=== PATIENT | male | born 1975 | race Caucasian/White ===

== ENCOUNTER 2017-02-19 20:38 | Emergency (ER) | payer BC ==
[~2017-02-19] VITALS: Ht 185.4 cm; Wt 110.0 kg
[2017-02-19 20:48] VITALS: Ht 185.4 cm; Wt 110.0 kg
[2017-02-19] MEDS ORDERED: [UNRECOGNIZED DRUG - OTHER] PO (21:00)
--- NOTE | 2017-02-19 21:22 | DIAGNOSTIC IMAGING REPORT ---
RIGHT ANKLE 3 VIEWS HISTORY: R ankle injury Right COMPARISON: None. FINDINGS: There are few small ossific densities adjacent to the lateral, medial, and posterior malleoli. These are consistent with age indeterminate avulsion injury/fractures. Diffuse soft tissue swelling within the ankle. No dislocation. No radiopaque foreign bodies. IMPRESSION: A few small ossific densities adjacent to the lateral, medial, and posterior malleoli consistent with age indeterminate avulsion injury/fractures. Electronically signed by: Tacos Mcclure M.D. 02/19/2017 9:20 PM Dictated Date/Time: 02/19/2017 9:18 PM
[2017-02-19 21:39] VITALS: BP 153/81; PULSE 56; TEMP 37.1; O2SAT 97
--- NOTE | 2017-02-19 22:28 | EMERGENCY ROOM VISIT NOTE ---
History First contact with patient: 20:54 Chief Complaint: ANKLE PAIN Stated Complaint: BROKEN/SPRAINED RIGHT ANKLE History of Present Illness The patient is a 41 year old male who presents to the Emergency Room with complaints of an injury to his right ankle after jumping over a rock and twisting his ankle. The patient denies any pain extending into the foot or leg. Denies any paresthesias or numbness of the right foot or toes. The patient does report that he had an injury to his ankle several years ago. He rates his discomfort a 7 out of 10. Review of Systems 10 system review was performed and was negative except for pertinent positives and negatives as indicated in history of present illness Past Medical/Surgical History Medical Problems: (1) Deviated Nasal Septum (2) Obstructive Sleep Apnea (Adult) (Pediatric) Family History Unremarkable Social History Smoking Status: Never Smoker Alcohol Use: occasionally Marital Status: Housing Status: lives with family Occupation Status: employed Current/Historical Medications Scheduled [Thermogenetic Supp], 1 DOSE PO UD Allergies Coded Allergies: No Known Allergies (Unverified , 02/19/17) Physical Exam Vital Signs Date Time Temp Pulse Resp B/P Pulse Ox O2 Delivery O2 Flow Rate FiO2 02/19/17 21:39 37.1 56 18 153/81 97 02/19/17 20:48 37.1 56 18 153/81 97 Room Air Physical Exam CONSTITUTIONAL: Healthy and well nourished. Alert and oriented X 3 with positive affect. HEENT: Normocephalic, atraumatic. Pupils equal, round and reactive. NECK: Full active range of motion without discomfort. MUSCULOSKELETAL: Examination shows diffuse edema about the right ankle. He is tender over the tip of the lateral malleolus. Minimal discomfort over the deltoid ligament. Negative anterior draw. No focal tenderness to palpation over the dorsal midfoot, metatarsals, phalanges, calcaneus, Achilles tendon or proximal fibula. Pedal pulses are intact. INTEGUMENTARY: No rash or other significant dermatologic conditions noted. NEUROLOGIC: No focal neurologic deficits noted. Right foot and toes are sensory intact. Medical Decision & Procedures ER Provider Diagnostic Interpretation: My interpretation of right ankle x-rays shows age indeterminate avulsion fractures of the lateral and posterior malleoli. Ankle mortise is symmetric. Radiologist report is as follows: RIGHT ANKLE 3 VIEWS HISTORY: R ankle injury Right COMPARISON: None. FINDINGS: There are few small ossific densities adjacent to the lateral, medial, and posterior malleoli. These are consistent with age indeterminate avulsion injury/fractures. Diffuse soft tissue swelling within the ankle. No dislocation. No radiopaque foreign bodies. IMPRESSION: A few small ossific densities adjacent to the lateral, medial, and posterior malleoli consistent with age indeterminate avulsion injury/fractures. ED Course Patient history and physical exam were performed. Nurse's notes were reviewed. The patient refused any analgesics while in the emergency department. X-rays of the right ankle shows age indeterminate avulsion fractures of the lateral and posterior malleoli. A posterior Ortho-Glass splint was applied. Neurovascular check after splint placement was normal. The patient was instructed to follow-up with orthopedics for further reevaluation and management. The patient stated that he would likely call [facility] for follow-up. He was encouraged to ice and elevate ankle for swelling. Ibuprofen and Tylenol in alternating fashion if needed for additional pain relief. Crutches were dispensed, and the patient was instructed to remain nonweightbearing. The patient was happy with plan of care , voiced understanding of all discharge instructions, and denied any significant pain at the time of discharge. Medical Decision Impression Primary Impression: Fractured lateral malleolus Additional Impression: Fracture, posterior malleolus Departure Information Dispostion Home / Self-Care Referrals Yadiel Chappell M.D. Forms HOME CARE DOCUMENTATION FORM, IMPORTANT VISIT INFORMATION Patient Instructions My [facility] Additional Instructions Ice and elevate ankle for swelling and pain. No weight on splint - use crutches. Ibuprofen 800 mg and/or Tylenol 1000 mg every 8 hours. You may also alternate these medications for more effective pain relief: Ibuprofen --4 HRS--> Tylenol --4 HRS--> ibuprofen --4 HRS--> Tylenol .... Follow-up with [facility] for further evaluation and treatment - call tomorrow 8:30 AM for appointment. Problem Qualifiers Primary Impression: Fractured lateral malleolus Encounter type: initial encounter Fracture type: closed Fracture alignment : displaced Laterality: right Qualified Codes: S82.61XA - Displaced fracture of lateral malleolus of right fibula, initial encounter for closed fracture Additional Impression: Fracture, posterior malleolus Encounter type: initial encounter Fracture type: closed Laterality: right Qualified Codes: S82.891A - Other fracture of right lower leg, initial encounter for closed fracture
== END 2017-02-19 21:40 | disposition home or self-care (01) ==
LOC: C.EDB 20:42 → C.EDD 21:40
DX: S82.61XA Displaced fracture of lateral malleolus of right fibula, initial encounter for closed fracture (principal); S82.891A Other fracture of right lower leg, initial encounter for closed fracture; X50.9XXA Other and unspecified overexertion or strenuous movements or postures, initial encounter; G47.33 Obstructive sleep apnea (adult) (pediatric)

== ENCOUNTER → 2017-03-06 | Outpatient (CLI) | payer BC ==
[~2017-03-06] MED LIST: [UNRECOGNIZED DRUG - OTHER] PO
--- NOTE | 2017-03-06 09:01 | DIAGNOSTIC IMAGING REPORT ---
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 There are old avulsion fragments adjacent to the medial malleolus and distal fibula. No acute fractures are visualized. The ankle mortise appears intact. IMPRESSION: Old avulsion fragments. No acute fractures. No evidence of ankle mortise disruption Electronically signed by: Wesley Ann M.D. 03/06/2017 9:00 AM Dictated Date/Time: 03/06/2017 8:58 AM
--- NOTE | 2017-03-06 09:40 | DIAGNOSTIC IMAGING REPORT ---
RIGHT FOOT 3 VIEWS HISTORY: RIGHT FOOT PAIN Right COMPARISON: None. FINDINGS: There is no fracture or dislocation. Soft tissue and small bony bunion at the medial head of the first metatarsal. Mild osteoarthritis at the first MTP joint. This is demonstrated by mild cartilage space narrowing and dorsal osteophytes. The Lisfranc joint is intact. No radiopaque foreign bodies. Old avulsion injuries are noted at the ankle. IMPRESSION: 1. No fracture or dislocation within the right foot. 2. Mild osteoarthritis at the first MTP joint. 3. Soft tissue and small bony bunion. Electronically signed by: Tacos Mcclure M.D. 03/06/2017 9:39 AM Dictated Date/Time: 03/06/2017 9:37 AM
== END | disposition home or self-care (01) ==
LOC: C.RDSM 14:32
PROVIDERS: ATTEND Physician Assistant
DX: S82.64XD Nondisplaced fracture of lateral malleolus of right fibula, subsequent encounter for closed fracture with routine healing (principal); S82.51XD Displaced fracture of medial malleolus of right tibia, subsequent encounter for closed fracture with routine healing; S93.431D Sprain of tibiofibular ligament of right ankle, subsequent encounter; X58.XXXD Exposure to other specified factors, subsequent encounter

== ENCOUNTER → 2017-03-27 | Outpatient (CLI) | payer BC ==
--- NOTE | 2017-03-27 09:11 | DIAGNOSTIC IMAGING REPORT ---
RIGHT ANKLE MIN 3 VIEWS CLINICAL HISTORY: Right ankle fracture COMPARISON: 03/06/2017 DISCUSSION: There is a small triangular bony density located posterior to the distal tibia. This appears corticated and is likely old. There is a corticated ossicle adjacent distal fibula. There is a small bony density located adjacent to the medial malleolus, likely old. There is no evidence for soft tissue swelling. IMPRESSION: Old avulsion fragments. No acute fractures are visualized. No evidence of ankle mortise disruption. Electronically signed by: Wesley Ann M.D. 03/27/2017 9:09 AM Dictated Date/Time: 03/27/2017 9:07 AM
== END | disposition home or self-care (01) ==
LOC: C.RDSM 09:00
PROVIDERS: ATTEND Physician Assistant
DX: S82.64XD Nondisplaced fracture of lateral malleolus of right fibula, subsequent encounter for closed fracture with routine healing (principal); S82.51XD Displaced fracture of medial malleolus of right tibia, subsequent encounter for closed fracture with routine healing; X58.XXXA Exposure to other specified factors, initial encounter

== ENCOUNTER → 2017-11-30 | Outpatient (CLI) | payer BC ==
--- NOTE | 2017-11-30 09:24 | DIAGNOSTIC IMAGING REPORT ---
L KNEE 3 VIEWS CLINICAL HISTORY: 42 years-old Male presenting with KNEE INJURY, TWISTING INJURY 6 WEEKS AGO, PERSISTENT PAIN. TECHNIQUE: Frontal, lateral, and sunrise views of the left knee were obtained. COMPARISON: None. FINDINGS: No acute fracture or malalignment. No advanced degenerative change. Small knee joint effusion may be present. No patellar subluxation. IMPRESSION: No acute osseous injury of the left knee. Small knee joint effusion. Electronically signed by: Nick Corona M.D. 11/30/2017 9:23 AM Dictated Date/Time: 11/30/2017 9:22 AM
== END | disposition home or self-care (01) ==
LOC: C.RADBC 09:07
PROVIDERS: ATTEND Internal Medicine
DX: S89.92XA Unspecified injury of left lower leg, initial encounter (principal); X58.XXXA Exposure to other specified factors, initial encounter